=== PATIENT | female | born 1975 | race Caucasian/White ===

== ENCOUNTER 2024-06-26 22:45 | Emergency (ER) | payer BC, SELFPAY ==
[2024-06-26 22:47] VITALS: BP 153/109; PULSE 98; RESP 18; TEMP 35.5; O2SAT 98; BMI 29.5
--- NOTE | 2024-06-26 23:25 | RAD_ITS ---
INDICATION: FOREIGN BODY EXAMINATION/TECHNIQUE: X-RAY - XR Pelvis 1 or 2 Views COMPARISON: None. FINDINGS: PELVIC BONES: No displaced fracture, destructive or sclerotic lesions. Sacroiliac joints are unremarkable. No widening of the pubic symphysis. HIPS: The articular structures are unremarkable. No displaced fracture seen in this frontal view. SOFT TISSUES: No radiodense foreign body. RAD/Pelvis 1 or 2 Views IMPRESSION: Unremarkable study. Electronically Signed: Kai Oneill MD at 23:51 EST ,
--- NOTE | 2024-06-27 00:51 | ED.RN ---
pt irritable. xray was completed. no beds have came available for patient, informed pt that she has been next to go back to a room. she chose to leave and stated I don't want charged for the services.
== END 2024-06-27 00:54 | disposition left against medical advice (07) ==
LOC: ED 06-27 00:54
DX: R09.A0 Foreign body sensation, unspecified (principal)
CPT/HCPCS: 72170

== ENCOUNTER 2024-11-28 13:08 | Emergency (ER) | payer BC, SELFPAY ==
[2024-11-28 13:10] VITALS: BP 186/94; PULSE 141; RESP 18; TEMP 36.6; O2SAT 100
--- NOTE | 2024-11-28 13:18 | EX.ED.DYSGE1 ---
HPI <MAURILIO Rasmussne - Last Filed: 11/28/24 16:00> History of Present Illness Chief Complaint: Overdose Narrative Narrative: 49-year-old female woke up and drank 1 beer and ate toast with THC oil on it. She states she has used it before but not often and she does not know the concentration. She started to feel anxious and have chest pain and could not find her fianc? so she called the paramedics. She denies nausea or vomiting. She feels like she is breathing hard. She denies other drug use. PFSH <MAURILIO Rasmussen - Last Filed: 11/28/24 16:00> [facility] Medical History (Updated 11/28/24 @ 15:55 by MAURILIO Rasmussen) HTN (hypertension) Allergy/AdvReac Type Severity Reaction Status Date / Time oxycodone Allergy Mild sob Verified 11/28/24 13:12 Sulfa (Sulfonamide Allergy Mild rash Verified 11/28/24 13:12 Antibiotics) Social History Smoking Status: Never smoker ROS <MAURILIO Rasmussen - Last Filed: 11/28/24 16:00> ROS ED ROS Narrative Constitutional: Negative for fever, chills, malaise. CVS: Positive for chest pain. Respiratory: Negative for shortness of breath. GI: Negative for abdominal pain, nausea, vomiting,. EXAM <MAURILIO Rasmussen - Last Filed: 11/28/24 16:00> Physical Exam Narrative Exam Narrative: CONST: Patient sitting in bed appears anxious and hyperventilating. EYES: Normal inspection. NECK: Normal inspection. RESP: No respiratory distress, CTAB. CVS: Tachycardic with regular rhythm, no murmur, no gallop. ABD: Soft and nontender, no guarding or rebound, nondistended. SKIN: Color normal, no rash, warm, dry, intact. EXTREMITIES: Normal appearance, no pedal edema. NEURO: Alert and answering questions appropriately. PSYCH: Anxious, clinically intoxicated. Const Vital Signs: 11/28/24 13:10 11/28/24 14:22 Temperature 97.8 F Temperature Source Temporal Pulse Rate 141 H 114 H Respiratory Rate 18 14 Blood Pressure 186/94 H 173/79 H Blood Pressure Mean 124 110 Pulse Ox 100 98 Oxygen Delivery Method Room Air Room Air <Dr. Miki Miller MD - Last Filed: 11/28/24 13:45> Physical Exam Const Vital Signs: 11/28/24 13:10 11/28/24 14:22 Temperature 97.8 F Temperature Source Temporal Pulse Rate 141 H 114 H Respiratory Rate 18 14 Blood Pressure 186/94 H 173/79 H Blood Pressure Mean 124 110 Pulse Ox 100 98 Oxygen Delivery Method Room Air Room Air MDM <MAURILIO Rasmussen - Last Filed: 11/28/24 16:00> [facility] Narrative Medical decision making narrative: Differential includes drug reaction, anxiety, ACS 49-year-old female ate toast with thc oil and had a beer this morning and is having anxiety and chest pain. She appears anxious. She is clinically high. She is hypertensive and tachycardic in the 140s. Normal sinus rhythm. The rest of her exam is benign. A her cardiac workup with EKG and troponin x 2 are normal. After IV Ativan her vital signs are improving and she is calm. Her family is here at bedside and will drive her home. I advised she stop using THC products. She was discharged in stable condition. I have personally performed a face to face assessment of the patient and have reviewed the ARA Note. I performed a substantive portion of the visit including all aspects of the following. My lara findings include: History is 49-year-old female reportedly ate toast today with THC oil on it. Some anxiety reaction to that. Exam is [49-year-old female sitting upright in bed. She is hypertensive and tachycardic. I spoke to her daughter on the phone instead and route to the emergency department. The patient seems very anxious. H EENT exam pupils round reactive light. 2 mm bilaterally. Moist membranes. Neck nontender. Lungs clear to auscultation bilaterally. Heart tachycardic 130 no murmur. Chest wall and ribs nontender. Abdomen soft nontender. Back nontender. Moving all 4 extremities. 5 of 5 glass fitter strength. Calves are nontender without edema or cords. Normal dorsi plantarflexion. Neurologically she is very anxious. She is emotionally upset. Rambling speech. But she does answer questions and follows commands.] Medical Decision Making [49-year-old with a THC overdose. Should be given Ativan. Have a cardiac workup due to her tachycardia] Other additions or changes: [None] Lab Data Labs: Laboratory Results - last 24 hr 11/28/24 11/28/24 12:50 14:57 WBC 13.6 H RBC 4.64 Hgb 14.5 Hct 42.4 MCV 91.4 MCH 31.3 MCHC 34.2 RDW Std Deviation 41.2 RDW Coeff of Anjali 12.3 Plt Count 316 MPV 11.2 Immature Gran % (Auto) 0.700 Neut % (Auto) 52.3 Lymph % (Auto) 34.1 Carroll % (Auto) 9.7 Eos % (Auto) 2.4 Baso % (Auto) 0.8 Absolute Neuts (auto) 7.1 Absolute Lymphs (auto) 4.64 H Nucleated RBC % 0 Sodium 135 Potassium 3.0 L Chloride 99 Carbon Dioxide 14.4 L Anion Gap 21 H BUN 9 Creatinine 0.89 Estim Creat Clear Calc 94.54 Est GFR (MDRD) Non-Af 80 BUN/Creatinine Ratio 10.2 Glucose 164 H Calcium 9.4 Troponin T High Sens < 6 Troponin T Hi Sens 2 Hr 9 <Dr. Miki Miller MD - Last Filed: 11/28/24 13:45> MDM MDM Narrative Medical decision making narrative: I have personally performed a face to face assessment of the patient and have reviewed the RAA Note. I performed a substantive portion of the visit including all aspects of the following. My lara findings include: History is 49-year-old female reportedly ate toast today with THC oil on it. Some anxiety reaction to that. Exam is [49-year-old female sitting upright in bed. She is hypertensive and tachycardic. I spoke to her daughter on the phone instead and route to the emergency department. The patient seems very anxious. H EENT exam pupils round reactive light. 2 mm bilaterally. Moist membranes. Neck nontender. Lungs clear to auscultation bilaterally. Heart tachycardic 130 no murmur. Chest wall and ribs nontender. Abdomen soft nontender. Back nontender. Moving all 4 extremities. 5 of 5 glass fitter strength. Calves are nontender without edema or cords. Normal dorsi plantarflexion. Neurologically she is very anxious. She is emotionally upset. Rambling speech. But she does answer questions and follows commands.] Medical Decision Making [49-year-old with a THC overdose. Should be given Ativan. Have a cardiac workup due to her tachycardia] Other additions or changes: [None] History & Record Review Discussion w/independent historian: Patient and Family Additional record(s) reviewed:: Prior inpatient record, Prior outpatient record, Prior ED visit and Prior labs Lab Data Attestation: I reviewed the patient's lab results. Labs: Laboratory Results - last 24 hr 11/28/24 11/28/24 12:50 14:57 WBC 13.6 H RBC 4.64 Hgb 14.5 Hct 42.4 MCV 91.4 MCH 31.3 MCHC 34.2 RDW Std Deviation 41.2 RDW Coeff of Anjali 12.3 Plt Count 316 MPV 11.2 Immature Gran % (Auto) 0.700 Neut % (Auto) 52.3 Lymph % (Auto) 34.1 Carroll % (Auto) 9.7 Eos % (Auto) 2.4 Baso % (Auto) 0.8 Absolute Neuts (auto) 7.1 Absolute Lymphs (auto) 4.64 H Nucleated RBC % 0 Sodium 135 Potassium 3.0 L Chloride 99 Carbon Dioxide 14.4 L Anion Gap 21 H BUN 9 Creatinine 0.89 Estim Creat Clear Calc 94.54 Est GFR (MDRD) Non-Af 80 BUN/Creatinine Ratio 10.2 Glucose 164 H Calcium 9.4 Troponin T High Sens < 6 Troponin T Hi Sens 2 Hr 9 Rhythm Strip Rhythm Strip: Sinus Tach Rate: 119 Ectopy: None EKG Initial EKG: Attestation: I personally reviewed and interpreted this EKG as follows: Interpretation: No Acute Injury Pattern and Sinus Tachycardia Comments: Sinus tachycardia rate of 119 no acute signs of ME or ischemia. Discharge Plan Triage Chief Complaint: Overdose ED Midlevel Provider: Karin Lyle ED Provider: Miki Miller Dx/Rx/DC Orders Clinical Impression: Marijuana intoxication, Anxiety, Sinus tachycardia, Chest pain Instructions: ED Chest Pain, Noncardiac Primary Care Provider: Bill Frost TIME STAMP ASSEMBLER Referrals: Care Physician,No Primary [Non-Staff] - Activity Restrictions/Additional Instructions: Your symptoms today were from overdose of THC ingestion. I recommend you stop using this. Follow-up with your primary care doctor. Print Language: [place] Disposition Disposition: Home, Self Care
--- NOTE | 2024-11-28 13:26 | EKG12_ITS ---
Test Reason : CP/ANXIETY Blood Pressure : */* mmHG Vent. Rate : 119 BPM Atrial Rate : 119 BPM P-R Int : 178 ms QRS Dur : 80 ms QT Int : 320 ms P-R-T Axes : 68 6 14 degrees QTcB Int : 450 ms Sinus tachycardia Low voltage QRS Nonspecific T wave abnormality Abnormal ECG Confirmed by Reynaldo Tariq ([id number]), editor trade journal HUSSEIN WRIGHT ([id number]) on 11/29/2024 11:00:57 AM Referred By: Confirmed By: Reynaldo Tariq
[2024-11-28] MEDS: Lorazepam 2 MG/ML WCH Syringe 1 MG IV (13:39)
[2024-11-28 13:47] LABS: Absolute Lymphocyte Count 4.64 X10^3/uL (0.83-4.51); Absolute Neutrophil Count 7.1 X10^3/uL (2.0-7.7); Basophil# 0.11 X10^3/uL; Basophil% 0.8 % (0-1); Eosinophil# 0.33 X10^3/uL; Eosinophils% 2.4 % (0-5); Hematocrit 42.4 % (37-47); Hemoglobin 14.5 g/dL (12.0-15.0); Lymphocyte # 4.64 X10^3/ul (0.83-4.51); Lymphocyte % 34.1 % (19-41); Mean Corp Hgb Conc 34.2 g/dL (32-36); Mean Corpuscular Hgb 31.3 pg (27.0-32.0); Mean Corpuscular Volume 91.4 fL (81-99); Mean Platelet Vol. 11.2 fl (6.2-12.0); Monocyte# 1.32 X10^3/uL; Monocyte% 9.7 % (0-10); NRBC Flagged by Analyzer 0 % (0-5); Neutrophil % 52.3 % (47-70); Platelet Count 316 K/mm3 (150-450); RBC Distribution Width CV 12.3 % (11.6-14.6); RBC Distribution Width SD 41.2 fl (35.1-43.9); Red Blood Count 4.64 M/mm3 (4.2-5.4); White Blood Count 13.6 K/mm3 (4.4-11.0)
[2024-11-28 14:20] LABS: Anion Gap 21 (5-15); BUN 9 mg/dL (4-19); BUN/Creat Ratio 10.2 RATIO (10-20); Calcium,Total 9.4 mg/dL (7.6-11.0); Carbon Dioxide 14.4 mmol/L (21.0-32.0); Chloride 99 mmol/L (98-108); Creatinine, Serum 0.89 mg/dL (0.70-1.20); EST Glomerular Filtration Rate 80 (>60); Estimated Creatinine Clearance 94.54 ml/min (50-250); Glucose 164 mg/dL (70-99); Sodium Level 135 mmol/L (133-145); Troponin T High Sensitivity < 6 ng/L (<=14)
[2024-11-28 14:22] VITALS: BP 173/79; PULSE 114; RESP 14; O2SAT 98
[2024-11-28] MEDS: Potassium Chloride Oral Tablet 20 MEQ 40 MEQ PO (15:01)
[2024-11-28 15:28] LABS: Troponin T High Sens 2 HR 9 ng/L (<=14)
[2024-11-28 16:04] VITALS: BP 168/74; PULSE 89; RESP 18; TEMP 36.6; O2SAT 99
== END 2024-11-28 16:06 | disposition home or self-care (01) ==
PROVIDERS: Physician Assistant; Emergency Provider Emergency Medicine; PCP Nurse Practitioner Primary Care; Visit Provider Emergency Medicine
DX: F12.929 Cannabis use, unspecified with intoxication, unspecified (principal); R07.9 Chest pain, unspecified; F41.9 Anxiety disorder, unspecified; I10 Essential (primary) hypertension; R00.0 Tachycardia, unspecified
CPT/HCPCS: 80048; 84484; 85025; 93005; 96374; 99285; A4216

== ENCOUNTER 2024-11-29 15:32 | Emergency (ER) | payer BC, SELFPAY ==
[2024-11-29 15:32] VITALS: BP 175/103; PULSE 97; RESP 20; TEMP 36.6; O2SAT 100; BMI 29.5
--- NOTE | 2024-11-29 16:18 | EKG12_ITS ---
Test Reason : CP Blood Pressure : */* mmHG Vent. Rate : 79 BPM Atrial Rate : 79 BPM P-R Int : 192 ms QRS Dur : 86 ms QT Int : 374 ms P-R-T Axes : 26 -10 0 degrees QTcB Int : 428 ms Normal sinus rhythm Normal ECG Confirmed by Reynaldo Tariq ([id number]), health editor HUSSEIN WRIGHT ([id number]) on 11/30/2024 9:56:23 AM Referred By: AK/CASEY Confirmed By: Reynaldo Tariq
--- NOTE | 2024-11-29 16:19 | EX.ED.DYSGE1 ---
HPI History of Present Illness Chief Complaint: Chest Pain Narrative Narrative: 49-year-old female past medical history of hypertension who presents with chest tightness, and paranoia continuing from yesterday. Of note, she was seen and evaluated in the emergency department yesterday, and reportedly diagnosed with panic attack. She admits that yesterday she and her boyfriend had ingested THC. They put oil on a piece of toast and ingested it. She states that she had taken edibles previously, and experienced paranoia. Today, when she was at home she noticed that her blood pressure was elevated at 186 systolic. She has been experiencing continued chest tightness. She is worried more about her blood pressure. She states that she was not feeling quite right again and not completely back to normal and that is why she had her boyfriend take her blood pressure. She is on 2 medications for it twice a day. No exacerbating or alleviating factors. [facility] Medical History HTN (hypertension) Home Medications ?Medication ?Instructions ?Recorded ?Last Taken ?Type amlodipine 2.5 mg tablet 2.5 mg PO DAILY 11/29/24 11/28/24 History doxycycline hyclate 20 mg tablet 20 mg PO BID 11/29/24 11/27/24 History valsartan 160 mg tablet 160 mg PO BID 11/29/24 11/29/24 History Allergy/AdvReac Type Severity Reaction Status Date / Time oxycodone Allergy Mild sob Verified 11/28/24 13:12 Sulfa (Sulfonamide Allergy Mild rash Verified 11/28/24 13:12 Antibiotics) Family History no significant family his Social History Smoking Status: Never smoker ROS ROS ED ROS Narrative Review of systems positive for chest tightness, paranoia, and generalized malaise and fatigue. No shortness of breath, no fevers or chills, no significant change from yesterday. She is concerned about elevated blood pressure as well. EXAM Physical Exam Narrative Exam Narrative: Afebrile. Vital signs noted. Nontoxic-appearing. Cardiovascular examination feels a regular rate and rhythm. Lungs are clear to auscultation bilaterally. Abdomen is soft, nontender with normal active bowel sounds. Neurological examination is nonfocal, nonlateralizing. She is awake, alert, oriented, and interactive. No pedal edema. Const Vital Signs: 11/29/24 15:32 11/29/24 15:38 11/29/24 16:32 Temperature 97.9 F Temperature Source Oral Pulse Rate 97 79 Respiratory Rate 20 H Respiratory Effort Normal Non-Labored Blood Pressure 175/103 H 164/100 H Blood Pressure Mean 127 121 Pulse Ox 100 99 Oxygen Delivery Method Room Air Room Air 11/29/24 17:00 Temperature Temperature Source Pulse Rate 86 Respiratory Rate Respiratory Effort Blood Pressure 164/100 H Blood Pressure Mean 121 Pulse Ox 99 Oxygen Delivery Method Room Air MDM MDM MDM Narrative Medical decision making narrative: I reviewed her prior workup and records/ED visit from yesterday. It does sound like she is having more side effects from THC. I do feel that her elevated blood pressure might be from her baseline/essential hypertension, as well as anxiety regarding the number. EKG was obtained and interpreted by myself independently as normal sinus rhythm at 79 bpm without ectopy or acute ST changes. No STEMI. Through shared decision making, I can recheck her labs and a single troponin. I do not feel she needs another chest x-ray. She was administered Ativan 1 mg intravenously for presumed anxiety. I feel ACS is lower on the differential. I reviewed her laboratory work and she has slight leukocytosis of 13 which I think is nonspecific with normal hemoglobin of 13.5, sodium slightly low at 131 which I think is nonspecific, CO2 20.4 which may be secondary to hyperventilation. I compared these to her labs from yesterday, and she had a low carbon dioxide as well but it is improved. High-sensitivity troponin is less than 6. Through shared decision making, it was not felt that she requires the repeat troponin as she still had the chest tightness that she was experiencing yesterday. After Ativan, her blood pressure is now 142 systolic. She will keep a log of her blood pressures for her primary care provider. We discussed the use of antianxiety medications, and she was told that benzodiazepine should be titrated by either a psychiatrist or her primary care provider. I was willing to write her prescription for Vistaril, but she declined stating that she will speak with her primary care provider regarding antianxiety medications. At this point in time, I do feel she can be discharged safely home with follow-up. Return instructions to the emergency department were reviewed. She should avoid future use of THC products. Disposition is discharged home in stable condition. History & Record Review Discussion w/independent historian: Patient and Significant other Lab Data Attestation: I reviewed the patient's lab results. Labs: Laboratory Results - last 24 hr 11/29/24 16:24 WBC 13.0 H RBC 4.35 Hgb 13.5 Hct 39.7 MCV 91.3 MCH 31.0 MCHC 34.0 RDW Std Deviation 40.6 RDW Coeff of Anjali 12.1 Plt Count 253 MPV 10.7 Immature Gran % (Auto) 0.500 Neut % (Auto) 79.7 H Lymph % (Auto) 12.2 L Gage % (Auto) 6.9 Eos % (Auto) 0.2 Baso % (Auto) 0.5 Absolute Neuts (auto) 10.4 H Absolute Lymphs (auto) 1.58 Nucleated RBC % 0 Sodium 131 L Potassium 3.6 Chloride 98 Carbon Dioxide 20.4 L Anion Gap 13 BUN 5 Creatinine 0.68 L Estim Creat Clear Calc 122.78 Est GFR (MDRD) Non-Af 108 BUN/Creatinine Ratio 7.9 L Glucose 108 H Calcium 9.6 Troponin T High Sens < 6 Discharge Plan Triage Chief Complaint: Chest Pain ED Provider: Joe Varma Dx/Rx/DC Orders Clinical Impression: Anxiety, Elevated blood pressure reading with diagnosis of hypertension, Chest tightness Instructions: ED Anxiety Reaction, ED Chest Pain, Noncardiac, ED Hypertension, Established Prescriptions: No Action amlodipine 2.5 mg tablet 2.5 mg PO DAILY doxycycline hyclate 20 mg tablet 20 mg PO BID valsartan 160 mg tablet 160 mg PO BID Primary Care Provider: Bill Frost NP Referrals: Bill Frost BALL POINTS INSPECTOR, BALL POINTS INSPECTOR-C [Primary Care Provider] - 3-5 Days if not improving Activity Restrictions/Additional Instructions: Keep a log of your blood pressures for your primary care provider. You may want to discuss with him medications for anxiety. Avoid use of THC products. Return to the emergency department with new or worsening symptoms. Print Language: [place] Disposition Disposition: Home, Self Care
[2024-11-29 16:32] VITALS: BP 164/100; PULSE 79; O2SAT 99
[2024-11-29 16:35] LABS: Absolute Lymphocyte Count 1.58 X10^3/uL (0.83-4.51); Absolute Neutrophil Count 10.4 X10^3/uL (2.0-7.7); Basophil# 0.07 X10^3/uL; Basophil% 0.5 % (0-1); Eosinophil# 0.02 X10^3/uL; Eosinophils% 0.2 % (0-5); Hematocrit 39.7 % (37-47); Hemoglobin 13.5 g/dL (12.0-15.0); Lymphocyte # 1.58 X10^3/ul (0.83-4.51); Lymphocyte % 12.2 % (19-41); Mean Corpuscular Volume 91.3 fL (81-99); Mean Platelet Vol. 10.7 fl (6.2-12.0); Monocyte# 0.89 X10^3/uL; Monocyte% 6.9 % (0-10); NRBC Flagged by Analyzer 0 % (0-5); Neutrophil # 10.36 X10^3/uL (2.7-7.7); Neutrophil % 79.7 % (47-70); Platelet Count 253 K/mm3 (150-450); RBC Distribution Width CV 12.1 % (11.6-14.6); RBC Distribution Width SD 40.6 fl (35.1-43.9); Red Blood Count 4.35 M/mm3 (4.2-5.4)
[2024-11-29] MEDS: Lorazepam 2 MG/ML WCH Syringe 1 MG IV (16:36)
[2024-11-29 16:50] LABS: Anion Gap 13 (5-15); BUN 5 mg/dL (4-19); BUN/Creat Ratio 7.9 RATIO (10-20); Calcium,Total 9.6 mg/dL (7.6-11.0); Carbon Dioxide 20.4 mmol/L (21.0-32.0); Chloride 98 mmol/L (98-108); Creatinine, Serum 0.68 mg/dL (0.70-1.20); EST Glomerular Filtration Rate 108 (>60); Estimated Creatinine Clearance 122.78 ml/min (50-250); Glucose 108 mg/dL (70-99); Potassium 3.6 mmol/L (3.3-5.1); Sodium Level 131 mmol/L (133-145); Troponin T High Sensitivity < 6 ng/L (<=14)
[2024-11-29 17:00] VITALS: BP 164/100; PULSE 86; O2SAT 99
[2024-11-29] MEDS: 0.9% Normal Saline (1000mL) 1,000 ML 999 ML IV (17:23)
[2024-11-29 18:00] VITALS: BP 159/100
[2024-11-29 18:11] VITALS: BP 159/100; PULSE 80; RESP 22; TEMP 36.6; O2SAT 100
== END 2024-11-29 18:41 | disposition home or self-care (01) ==
PROVIDERS: Emergency Provider Emergency Medicine; PCP Nurse Practitioner Primary Care; Visit Provider Emergency Medicine
DX: R07.89 Other chest pain (principal); F41.9 Anxiety disorder, unspecified; I10 Essential (primary) hypertension; Z79.899 Other long term (current) drug therapy
CPT/HCPCS: 80048; 84484; 85025; 93005; 96361; 96374; 99284; A4216